=== PATIENT | male | born 1975 | race Caucasian/White ===

== ENCOUNTER 2018-07-25 21:14 | Emergency (ER) | payer OTHER, SELFPAY ==
[2018-07-25 21:16] VITALS: BP 145/93; PULSE 99; RESP 18; TEMP 36.8; O2SAT 94; BMI 33.3
--- NOTE | 2018-07-25 21:56 | ED.VISSUMM ---
- ER Visit Summary Date of Service: 07/25/18 Chief Complaint: Opioid addiction History of Present Illness: The patient is a 42 M who presents with opioid addiction. He states after surgery 3 years ago he became dependent on opioids. He has been using tramadol for 3 years. He takes about 3 to 4 tablets/day. He quit taking them about 3 to 4 days ago. He has had nausea and dry heaving with 2 episodes of emesis. He also complains of some diarrhea. He complains of mild intermittent abdominal cramping. No fevers. A family member talk to someone associated with [facility] and was referred here to [facility] and told that he would be admitted for 3 days for detox. Physical Examination: Afebrile vitals normal No distress No diaphoresis No yawning or lacrimation. No nasal congestion. Heart regular rate and rhythm Lungs are clear Abdomen soft Test Results: Not indicated Emergency Department Course and Treatment: CINA score is 9. Patient does not meet criteria for hospitalization at this time. I did provide prescriptions to assist with symptom management including Phenergan and Bentyl and he was referred to [facility]. Treatment Plan: [] Disposition: Discharge Impression: Opioid abuse Opioid dependence This note was generated with [employer] dictation software. It may contain incorrect words, spelling, and punctuation that were not noted in review of the chart prior to signing ED Disposition - Plan for ED Patient: Referrals: [facility] Doctor,Out of [Primary Care Provider] -
--- NOTE | 2018-07-25 21:59 | DCINST.ED_ITS ---
ED Disposition - Plan for ED Patient: Instructions: ED Narcotic Abuse Prescriptions: proMETHazine tablet [Phenergan] 25 mg PO Q6H PRN PRN #10 tab PRN Reason: Nausea Dicyclomine HCl [Bentyl] 20 mg PO TIDAC #20 cap Referrals: [facility] Doctor,Out of [Primary Care Provider] - [facility] [STAFF PHYSICIAN] -
--- NOTE | 2018-07-25 21:59 | ED.DCSUM_ITS ---
- ER Visit Summary Date of Service: 07/25/18 Chief Complaint: Opioid addiction History of Present Illness: The patient is a 42 M who presents with opioid addiction. He states after surgery 3 years ago he became dependent on opioids. He has been using tramadol for 3 years. He takes about 3 to 4 tablets/day. He quit taking them about 3 to 4 days ago. He has had nausea and dry heaving with 2 episodes of emesis. He also complains of some diarrhea. He complains of mild intermittent abdominal cramping. No fevers. A family member talk to someone associated with [facility] and was referred here to [facility] and told that he would be admitted for 3 days for detox. Physical Examination: Afebrile vitals normal No distress No diaphoresis No yawning or lacrimation. No nasal congestion. Heart regular rate and rhythm Lungs are clear Abdomen soft Test Results: Not indicated Emergency Department Course and Treatment: CINA score is 9. Patient does not meet criteria for hospitalization at this time. I did provide prescriptions to assist with symptom management including Phenergan and Bentyl and he was referred to [facility]. Treatment Plan: [] Disposition: Discharge Impression: Opioid abuse Opioid dependence This note was generated with [employer] dictation software. It may contain incorrect words, spelling, and punctuation that were not noted in review of the chart prior to signing ED Disposition - Plan for ED Patient: Referrals: [facility] Doctor,Out of [Primary Care Provider] -
--- NOTE | 2018-07-25 22:09 | ED.RN ---
PATIENT WAS DISCHARGED HOME AND PATIENT WAS GIVEN A NEW VISION PAPERWORK AND PROGRAM WAS DISCUSSED WITH PATIENT BY THIS NURSE.
--- NOTE | 2018-07-25 22:58 | ED.RN ---
PT AND VISITOR REQUEST THAT THE STAFF TAKE HIS BOTTLE OF TRAMADOL. THIS NURSE PLACED THE BOTTLE IN A BIOHAZARD BAG AND SENT THE BOTTLE TO PHARMACY. THIS WAS DISCUSSED WITH [facility]S PHARMACIST
== END 2018-07-25 22:13 | disposition home or self-care (01) ==
LOC: ED 22:12
PROVIDERS: Emergency Provider Emergency Medicine; Family Provider Internal Medicine Adolescent Medicine
DX: F11.20 Opioid dependence, uncomplicated (principal)
CPT/HCPCS: 99282